=== PATIENT | male | born 1965 | race Hispanic/Latino ===

== ENCOUNTER 2016-11-18 07:58 | Emergency (ER) | payer OTHER ==
[~2016-11-18] VITALS: Ht 162.6 cm; Wt 78.3 kg
[2016-11-18 08:04] VITALS: BP 138/79; PULSE 76; RESP 11; O2SAT 97
[2016-11-18] MEDS ORDERED: 0.9% Sodium Chloride 1,000 ML IV ONE (08:11)
--- NOTE | 2016-11-18 08:11 | ED.REPORT ---
HPI-General Illness Date of Service November 18, 2016 ED Provider: Stanton Lee MD Pt is a 51 y.o. male with a hx of HTN who presents to the ED c/o vomiting onset today. Pt reports associated nausea, dizziness, and SOB. 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 He states he was wearing eye glasses but denies respirator use. He claims that he took several showers yesterday but placed the same pants on again today before his sx began. He is concerned that his symptoms are related to exposure to this herbicide. He denies any significant past medical history states that he is generally in good health. Nursing Notes Stated Complaint: PESTICIDE POISON Chief Complaint: General Complaint Nursing Notes Reviewed: Yes Allergies: Coded Allergies: No Known Allergies (Unverified , 11/18/16) Scheduled PRN Ondansetron ODT (Zofran ODT) 4 Mg Tablet 4 MG PO Q4H PRN PRN For Nausea General Time Seen by MD: 08:02 Chief Complaint Vomiting Hx Obtained From: Patient Arrived By: Walk-in Sudden in Onset?: Yes Onset Occurred: 1 - 4 hours ago Symptom Duration: Since onset Past Medical History Past Medical History Reports: Diabetes mellitus (Pre-), Hypertension Social History Other Social History: Good social support Ambulatory Status Independent Review of Systems Full Review of Systems Respiratory: Reports: Shortness of breath GI: Reports: Nausea, Vomiting Neurologic: Reports: Dizziness Complete sys rev & neg: except as marked. Physical Exam Vital Signs Vital Signs Date Time Temp Pulse Resp B/P Pulse Ox O2 Delivery O2 Flow Rate FiO2 11/18/16 11:22 35.6 66 14 114/68 99 Room Air 11/18/16 11:20 66 14 114/68 99 Room Air 11/18/16 10:30 72 17 119/74 98 Room Air 11/18/16 09:46 81 110/81 100 Room Air 11/18/16 08:04 35.6 76 11 138/79 97 Room Air Initial VS: Reviewed Extremities: Vascular intact, Neuro intact Skin: Warm, Dry, No cyanosis Neurologic: Alert, Oriented, Nonfocal Psychiatric: Mood/affect normal, Behavior normal, Normal thought content General/Constitutional: Awake, Alert, No acute distress, Well appearing, Well developed, Well hydrated, Well nourished, Not toxic appearing Head / Eyes: Atraumatic, Normocephalic, PERRL (3mm), EOMI ENT: Atraumatic, Airway patent, Mucous membranes moist Respiratory / Chest: Atraumatic, Breath sounds NL, Breath sounds = bilat, No respiratory distress Cardiovascular: Heart rate NL, Regular rhythm, Heart sounds NL, Cap refill not delayed, Peripheral circulation NL Abdomen: Atraumatic, Soft, Non-tender, No distention Interpretation & Diagnostics Lab Results Interpretation Result Diagram: 11/18/16 0810 11/18/16 0810 Test 11/18/16 08:10 White Blood Count 7.1th/mm3 (3.8-10.1) Red Blood Count 5.00mil/mm3 (4.40-5.80) Hemoglobin 13.3g/dL (13.8-17.2) Hematocrit 39.2% (41.0-50.0) Mean Corpuscular Volume 78.4fL (81-100) Mean Corpuscular Hemoglobin 26.6pg (27.0-35.0) Mean Corpuscular Hemoglobin Concent 33.9% (32.0-37.0) Red Cell Distribution Width 14.0% (12.3-15.4) Platelet Count 320bil/L (150-400) Neutrophils (%) (Auto) 53.5% (40-74) Lymphocytes (%) (Auto) 39.2% (14-46) Monocytes (%) (Auto) 5.2% (4-12) Eosinophils (%) (Auto) 1.4% (0-5) Basophils (%) (Auto) 0.6% (0-3) Sodium Level 140mEq/L (134-144) Potassium Level 3.3mEq/L (3.5-5.2) Chloride Level 102mEq/L (97-108) Carbon Dioxide Level 22mmol/L (18-29) Blood Urea Nitrogen 20mg/dL (6-24) Creatinine 0.95mg/dL (0.76-1.27) Estimat Glomerular Filtration Rate 90mL/min (>59) Glucose Level 212mg/dL (60-99) Calcium Level 9.0mg/dL (8.5-10.1) Magnesium Level 1.9mg/dL (1.6-2.6) Total Bilirubin 1.2mg/dL (0.0-1.2) Aspartate Amino Transf (AST/SGOT) 22U/L (0-50) Alanine Aminotransferase (ALT/SGPT) 22U/L (0-44) Alkaline Phosphatase 60U/L (25-150) Total Protein 7.2g/dL (6.4-8.4) Albumin 4.1g/dL (3.4-5.0) Hold López Top Tube Received (Received) Re-Eval/Medical Decision Med Decision/Clinical Course Pt is a 51 y.o. male with a hx of HTN who presents to the ED c/o vomiting onset today. Pt reports associated nausea, dizziness, and SOB. 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 He states he was wearing eye glasses but denies respirator use. He claims that he took several showers yesterday but placed the same pants on again today before his sx began. He is concerned that his symptoms are related to exposure to this herbicide. He denies any significant past medical history states that he is generally in good health. Here in the emergency department the patient is afebrile with stable vital signs and in no apparent distress. He was treated with IV fluids and Zofran and reported dramatic symptomatic improvement. My initial concern was for possible organophosphate poisoning as some of his symptoms seemed to suggest that. In my assessment, however, the overall clinical presentation did not seem consistent with organophosphate poisoning as he did not demonstrate a full constellation of symptoms. I obtained the material safety data sheet on this compound and it sounds relatively benign. I discussed with [facility] and they state that he would have to have massive exposure with prolonged significant dermal contact to present with any significant symptoms and that his presentation today is not consistent with toxicity related to this compound. He was observed here for several hours and reported feeling dramatically better after receiving Zofran and fluids. I suspect that his presentation today is likely related to mild gastroenteritis versus toxicity from any exposures. Patient reports that he feels better, has tolerated PO and would like to be discharged. I feel that this is appropriate. Prior to discharge follow-up and return precautions were reviewed in detail with the patient who verbalized understanding and agreement with the plan. The patient was discharged in stable condition. Source of Hx: Old records Time of Eval: 09:19 Patient Status: Condition improved Re-Evaluation/Progress Note: Pt rechecked and he feels improved after Zofran. Time of Eval: 10:25 Re-Evaluation/Progress Note: Pt is vomiting and has already been administered 8 of Zofran. Reglan will be administered. Counseled Regarding: Diagnosis, Lab results, Need for follow-up, When/why to return to ED Discharge & Departure Primary Impression: Nausea & vomiting Vomiting type: unspecified Vomiting Intractability: unspecified Qualified Code: R11.2 - Nausea with vomiting, unspecified Additional Impressions: Herbicide poisoning Encounter type: initial encounter Injury intent: accidental or unintentional Qualified Code: T60.3X1A - Toxic effect of herbicides and fungicides, accidental (unintentional), initial encounter Dehydration Disposition: Home Discharge Condition All VS Reviewed: Yes Condition: Improved Additional Instructions: Thank you for seeking care at the emergency room. It is difficult for us to make definitive diagnoses in the ED but we believe that you are experiencing a GI illness. We do not think that the exposure to pesticide caused your symptoms. Our primary goal today in the ED was to evaluate you for any life-threatening conditions. Your evaluation was reassuring. You will be discharged with a prescription for Zofran for nausea. You should follow-up with your primary doctor in the next week. You should return to the ED immediately if you develop increasing/worsening symptoms, fevers, vomiting, cough, shortness of breath, chest pain, lightheadedness, weakness or any other concerning signs or symptoms. Thank you for letting us partake in your care today. Referrals: Jonathan Campos MD (PCP) Scribe Attestation Portions of this note were transcribed by Teresita Romo. I, Dr. Lee personally performed the history, physical exam and medical decision-making; I reviewed and confirmed the accuracy of the information in the transcribed note. Signed by: Josefa Tolbert, 11/18/16 and 1120. copies to: Jonathan Campos MD, Beck O MD November 18, 2016 08:11 TERESITA ROMO November 18, 2016 09:38
[2016-11-18] MEDS ORDERED: Ondansetron 2 mg/mL 2 mL Inj IVPUSH ONE (08:15)
[2016-11-18 08:36] LABS: BASOPHILS % (AUTO) 0.6 % (0-3); EOSINOPHILS % (AUTO) 1.4 % (0-5); MONOCYTES % (AUTO) 5.2 % (4-12); Mean Corpuscular Hemoglobin 26.6 pg (27.0-35.0); Mean Corpuscular Volume 78.4 fL (81-100); NEUTROPHILS % (AUTO) 53.5 % (40-74); Platelet Count 320 bil/L (150-400)
[2016-11-18 08:59] LABS: Magnesium 1.9 mg/dL (1.6-2.6)
[2016-11-18 09:46] VITALS: BP 110/81; PULSE 81; O2SAT 100
[2016-11-18] MEDS ORDERED: MetoCLOpramide 5 mg/mL 2 mL Inj ONE (10:23)
[2016-11-18] MEDS ORDERED: ONDA4TAB9 PO (10:27)
[2016-11-18 10:30] VITALS: BP 119/74; PULSE 72; RESP 17; O2SAT 98
[2016-11-18] MEDS ORDERED: MetoCLOpramide 5 mg/mL 2 mL Inj IVPUSH PRN (10:30)
[2016-11-18 11:20] VITALS: BP 114/68; PULSE 66; RESP 14; O2SAT 99
[2016-11-18 11:22] VITALS: BP 114/68; PULSE 66; RESP 14; O2SAT 99
== END 2016-11-18 11:22 | disposition home or self-care (01) ==
LOC: SED 07:58
DX: T60.3X1A Toxic effect of herbicides and fungicides, accidental (unintentional), initial encounter (principal); R11.2 Nausea with vomiting, unspecified; E86.0 Dehydration; X58.XXXA Exposure to other specified factors, initial encounter; Y93.89 Activity, other specified; Y92.9 Unspecified place or not applicable; Y99.0 Civilian activity done for income or pay; R42 Dizziness and giddiness; R06.02 Shortness of breath; R73.03 Prediabetes; I10 Essential (primary) hypertension
CPT/HCPCS: 36415; 80053; 83735; 85025; 96361; 96374; 96375; 99285; J2405; J2765; J7030